=== PATIENT | female | born 1945 | race Caucasian/White ===

== ENCOUNTER 2024-03-22 12:47 | Inpatient (IN) ==
[2024-03-22] MEDS ORDERED: VANCOMYCIN CONSULT ACTIVE PRN (13:29)
--- NOTE | 2024-03-22 13:38 | Emergency Department Note ---
Impression & Plan Cellulitis, Wound infection ED Provider Note NAME: ANTONETTE ROBISON AGE: 78 SEX: F : 1945 ARRIVES VIA: Walk-In INFORMANT: [Patient][family] ED PROVIDER(S): [Kwaku Pinzon MD] CHIEF COMPLAINT: Infection HISTORY OF PRESENT ILLNESS: The patient is a 78-year-old female who was in this ED about 3 days ago after suffering an extensive right knee laceration. The wound was quite dirty. The wound was cleansed and stitched together and she was placed on Keflex. Within about 24 hours she began noticing erythema to the distal aspect of the incision that has now tracked down towards the ankle. She has not had fever or chills. She can move the right knee joint without any pain. The patient went to an urgent care center and was referred to the ER for further workup. The patient states that she has not had cough or congestion. She has no urinary symptoms, there is been no nausea or vomiting. PMHx/PSHx/Social Hx: See Below PHYSICAL EXAM: GENERAL: Patient is in no acute distress. HEENT: No acute trauma, normocephalic atraumatic, mucous membranes moist, no nasal congestion. NECK: No stridor, no adenopathy, no meningismus, trachea is midline. LUNGS: Clear to auscultation bilaterally, no wheeze, no rhonchi, breath sounds equal. HEART: Without murmurs gallops or rubs, regular rate and rhythm. ABDOMEN: Soft, nontender, no peritonitis. EXTREMITIES: No cyanosis. The patient has sutures across the anterior aspect of the right knee. No drainage. Movement of the right knee joint does not cause pain or discomfort. There is warmth and erythema tracking from the inferior aspect of the incision down towards the ankle. There is some ascending erythema as well but it is minimal compared to the inferior erythema. There is some edema to the right lower extremity compared to the left. NEUROLOGIC: Oriented x 3, no acute motor or sensory deficits, no focal weakness. SKIN: No jaundice, no diaphoresis. DIFFERENTIAL DIAGNOSIS: Cellulitis, septic joint, bacteremia or sepsis, bursitis, among others EMERGENCY DEPARTMENT PROCEDURES: MEDICAL DECISION MAKING: There is no leukocytosis. A mild anemia was seen. There was a normal platelet count. There was an elevation to the creatinine consistent with some mild renal insufficiency. No electrolyte abnormality in need of emergent correction. Lactic acid level was not elevated making sepsis less likely. No worrisome liver enzyme elevation. Procalcitonin level was not elevated. On exam, the patient had a right leg cellulitis which seemed to extend from the recent right knee wound. The patient is already on Keflex outpatient. Despite the Keflex, she has developed right leg erythema and warmth and appears now to have a cellulitis. Patient requires admission with IV antibiotic therapy. She may require an orthopedic consult and potential orthopedic intervention if not improving on IV antibiotic therapy. I spoke with the patient and her family, I spoke with case management, the on- call hospitalist was consulted. Prior/Outside records/notes reviewed: Previous ED visit notes from her visit 3 days ago. The notes discussed her presentation and the washout and plan moving forward. Imaging/x-ray results per my interpretation: Chronic Medical/Social conditions affecting care: Advanced age. Care/Management discussed with: Case management, the on-call hospitalist. Level of care consideration(s): After review of the information above and other included data: --I believe the patient requires escalation of care to admission DISPOSITION: Admission Past Med/Surg History Problem List (Updated 03/22/24 @ 15:26 by Kwaku Pinzon MD) Wound infection (Acute) Cellulitis (Acute) Coronary artery disease (Chronic) Acute right eye pain (Acute) Medical History Laceration of knee, right, complicated Surgical History Stented coronary artery Social History Smoking Status: Never smoker Preferred Language: Japanese Feels Safe at Home: Yes Allergies Allergies Allergy/AdvReac Type Severity Reaction Status Date / Time clindamycin Allergy Intermediate RASH Verified 03/22/24 14:53 Home Meds Home Medications Medication Instructions Recorded Confirmed acetaminophen 650 mg 650 mg PO BID PRN SHOULDER PAIN 03/22/24 03/22/24 tablet,extended release amlodipine 5 mg tablet 5 mg PO QPM 03/22/24 03/22/24 aripiprazole 10 mg tablet 10 mg PO QAM 03/22/24 03/22/24 aspirin 81 mg tablet,delayed 81 mg PO Q OTHER DAY 03/22/24 03/22/24 release budesonide 32 mcg/actuation nasal 2 spray intranasal DAILY 03/22/24 03/22/24 spray carbidopa 25 mg-levodopa 100 mg 1 tab PO TID 03/22/24 03/22/24 tablet cetirizine 10 mg tablet (Zyrtec) 5 - 10 mg PO QPM 03/22/24 03/22/24 cholecalciferol (vitamin D3) 125 125 mcg PO QAM 03/22/24 03/22/24 mcg (5,000 unit) tablet (Vitamin D3) ciclopirox 0.77 % topical 1 applic topical DIRECTED PRN 03/22/24 03/22/24 suspension NEEDED cyanocobalamin (vitamin B-12) 500 500 mcg PO QAM 03/22/24 03/22/24 mcg tablet (Vitamin B-12) dextromethorphan IR 45 1 tab PO BID 03/22/24 03/22/24 mg-bupropion ER 105 mg biphasic tablet (Auvelity) estradiol 0.01% (0.1 mg/gram) 1 appful vaginal 2XWK 03/22/24 03/22/24 vaginal cream (Estrace) eszopiclone 3 mg tablet 3 mg PO QPM 03/22/24 03/22/24 fluvoxamine 25 mg tablet 25 mg PO QPM 03/22/24 03/22/24 furosemide 20 mg tablet 40 mg PO QAM 03/22/24 03/22/24 gabapentin 600 mg tablet 600 mg PO TID 03/22/24 03/22/24 hydrocodone 10 mg-acetaminophen 1 tab PO BID PRN Pain 03/22/24 03/22/24 325 mg tablet hydrocortisone 2.5 % topical cream 1 applic ME BID PRN Hemorrhoids 03/22/24 03/22/24 with perineal applicator (Proctosol HC) hydrocortisone acetate 25 mg 25 mg ME DAILY PRN Hemorrhoids 03/22/24 03/22/24 rectal suppository (Anucort-HC) lorazepam 1 mg tablet 0.5 mg PO QPM 03/22/24 03/22/24 meclizine 25 mg tablet 25 mg PO TID PRN Dizziness 03/22/24 03/22/24 methocarbamol 500 mg tablet 500 mg PO BID 03/22/24 03/22/24 metoprolol succinate 25 mg 25 mg PO BID 03/22/24 03/22/24 tablet,extended release 24 hr modafinil 200 mg tablet 400 mg PO QAM 03/22/24 03/22/24 naloxegol 25 mg tablet (Movantik) 25 mg PO DIRECTED PRN NEEDED 03/22/24 03/22/24 nitroglycerin 0.4 mg sublingual 0.4 mg sublingual DIRECTED PRN 03/22/24 03/22/24 tablet Chest Pain pantoprazole 40 mg tablet,delayed 40 mg PO QAM 03/22/24 03/22/24 release psyllium husk 0.52 gram capsule 0.52 g PO 2XWK PRN Constipation 03/22/24 03/22/24 rosuvastatin 20 mg tablet 20 mg PO QPM 03/22/24 03/22/24 sertraline 25 mg tablet 25 mg PO QAM 03/22/24 03/22/24 Previous Rx's Medication Instructions Recorded cephalexin 500 mg capsule 500 mg PO Q6H 5 days #20 caps 03/19/24 Results & Data (ED) Vital Signs Vital Signs - 24 hr 03/22/24 13:01 03/22/24 14:38 Temperature 36.3 C L Temperature Source Temporal Artery Scan Pulse Rate 58 L Pulse Rate [Apical] 55 L Respiratory Rate 20 18 Respiratory Depth Normal Blood Pressure 118/64 Blood Pressure [Right Arm] 114/80 Blood Pressure Mean 82 Blood Pressure Mean [Right Arm] 91 Blood Pressure Position [Right Arm] Sitting Pulse Oximetry 94 94 Oxygen Delivery Method Room Air Room Air Sepsis Recent Fever Within 48 Hours No Sepsis New/Unexplained Change in Mental Status N/A Sepsis Action Taken by Nursing No Action Required Home Medications Current Medication List: was personally reviewed by me Laboratory Data Attestation: I reviewed the patient's lab results. 03/22/24 14:05 03/22/24 14:05 Lab Results 03/22/24 Range/Units 14:05 WBC 9.56 (4.8-10.8) K/ul RBC 3.01 L (4.20-5.40) M/uL Hgb 10.2 L (12.0-16.0) g/dl Hct 31.1 L (37.0-47.0) % MCV 103.3 H (80.0-100.0) fL MCH 33.9 (25.0-34.0) pg MCHC 32.8 (32.0-36.0) g/dL RDW Std Deviation 52.1 H (36.4-46.3) fL RDW Coeff of Charlette 13.8 (11.5-14.5) % Plt Count 245 (130-400) K/uL MPV 8.8 L (9.4-12.4) fL Immature Gran % (Auto) 0.2 % Neut % (Auto) 67.8 % Lymph % (Auto) 18.8 % [place] % (Auto) 9.8 % Eos % (Auto) 2.8 % Baso % (Auto) 0.6 % Neut # (Auto) 6.47 (1.40-6.50) K/uL Lymph # (Auto) 1.80 (1.20-3.40) K/uL [place] # (Auto) 0.94 H (0.11-0.59) K/uL Eos # (Auto) 0.27 (0.00-0.50) K/uL Baso # (Auto) 0.06 (0.00-0.20) K/uL Immature Gran # (Auto) 0.02 (0.01-0.20) K/uL Sodium 135 L (136-145) mmol/L Potassium 4.0 (3.5-5.1) mmol/L Chloride 102 (98-107) mmol/L Carbon Dioxide 27 (21-32) mmol/L Anion Gap 6 (3-11) BUN 23 (6-23) mg/dl Creatinine 1.57 H (0.6-1.2) mg/dl Est Cr Clr Drug Dosing 25.9 ml/min Est GFR ( Amer) 36.0 ml/min Est GFR (Non-Af Amer) 31.0 ml/min BUN/Creatinine Ratio 14.6 (10-20) Glucose 86 (70-99(Fasting)) mg/dl Lactate 1.0 (0.4-2.0) mmol/L Calcium 9.2 (8.6-10.3) mg/dl Total Bilirubin 0.3 (0.2-1.0) mg/dl AST 16 (13-39) U/L ALT 4 L (7-52) U/L Alkaline Phosphatase 76 (34-104) U/L Total Protein 6.6 (6.0-8.3) gm/dl Albumin 3.7 (3.4-5.0) gm/dl Globulin 2.9 (2.5-4.0) gm/dl Albumin/Globulin Ratio 1.3 (0.9-2) Procalcitonin 0.07 (0-0.5) ng/ml Administered Medications Vancomycin HCl 1,750 mg/ (Sodium Chloride) 535 mls @ 200 mls/hr IV NOW ONE Stop: 03/22/24 16:09 Last Admin: 03/22/24 15:01 Dose: 200 mls/hr Documented By: JW Discontinued Medications Cefepime HCl (Maxipime) 2,000 mg in 20 mls @ 5 mls/min IV NOW STA; Protocol Stop: 03/22/24 13:32 Last Admin: 03/22/24 14:28 Dose: 5 mls/min Documented By: AMS Discharge Plan Visit Data Chief Complaint: Infection ED Provider: Kwaku Pinzon Discharge Problem: Cellulitis, Wound infection Patient Disposition: Admitted As Inpatient Condition: Fair Forms Stand Alone Forms: My [facility] Prescriptions Prescriptions: No Action cephalexin 500 mg capsule 500 mg PO Q6H 5 Days Qty: 20 0RF Rx Instructions: STARTED 03/19/24 budesonide [Rhinocort Allergy] 32 mcg/actuation [place],Non-Aerosol 2 spray INTRANASAL DAILY Rx Instructions: administer into each nostril methocarbamol 500 mg Tablet 500 mg PO BID gabapentin 600 mg tablet 600 mg PO TID cetirizine [Zyrtec] 10 mg Tablet 5 - 10 mg PO QPM amlodipine 5 mg tablet 5 mg PO QPM hydrocodone-acetaminophen 10-325 mg tablet 1 tab PO BID PRN (Reason: Pain) Rx Instructions: TAKES BID EVERY DAY aspirin 81 mg Tablet,Delayed Release (Dr/Ec) 81 mg PO Q OTHER DAY acetaminophen [Tylenol Arthritis] 650 mg Tablet Extended Release 650 mg PO BID PRN (Reason: SHOULDER PAIN) hydrocortisone acetate [Anucort-HC] 25 mg Suppository 25 mg ME DAILY PRN (Reason: Hemorrhoids) hydrocortisone [Proctosol HC] 2.5 % Cream With Perineal Applicator 1 applic ME BID PRN (Reason: Hemorrhoids) modafinil 200 mg tablet 400 mg PO QAM cyanocobalamin (vitamin B-12) [Vitamin B-12] 500 mcg Tablet 500 mcg PO QAM fluvoxamine 25 mg tablet 25 mg PO QPM meclizine 25 mg Tablet 25 mg PO TID PRN (Reason: Dizziness) pantoprazole 40 mg tablet,delayed release (DR/EC) 40 mg PO QAM nitroglycerin [NitroQuick] 0.4 mg Tablet, Sublingual 0.4 mg sublingual DIRECTED PRN (Reason: Chest Pain) sertraline 25 mg tablet 25 mg PO QAM furosemide 20 mg tablet 40 mg PO QAM metoprolol succinate 25 mg tablet extended release 24 hr 25 mg PO BID lorazepam 1 mg tablet 0.5 mg PO QPM estradiol [Estrace] 0.01 % (0.1 mg/gram) Cream 1 appful VAGINAL 2XWK carbidopa-levodopa 25-100 mg tablet 1 tab PO TID ciclopirox 0.77 % Suspension 1 applic TOPICAL DIRECTED PRN (Reason: NEEDED) aripiprazole 10 mg tablet 10 mg PO QAM psyllium husk 0.52 gram Capsule 0.52 g PO 2XWK PRN (Reason: Constipation) rosuvastatin 20 mg tablet 20 mg PO QPM eszopiclone 3 mg tablet 3 mg PO QPM cholecalciferol (vitamin D3) [Vitamin D3] 125 mcg (5,000 unit) Tablet 125 mcg PO QAM Movantik 25 mg tablet 25 mg PO DIRECTED PRN (Reason: NEEDED) Rx Instructions: PER PT'S MED LIST "COUPLE NIGHTS PER MONTH" Auvelity 45-105 mg Tablet,Ir,Delayed Rel,Biphasic 1 tab PO BID Referrals Referrals: PCP,NO [Physician] - Discharge Problem: Cellulitis Qualifiers: Site of cellulitis: extremity Site of cellulitis of extremity: lower extremity Laterality: right Qualified Code(s): L03.115 - Cellulitis of right lower limb
[2024-03-22] MEDS: CEFEPIME 2,000 MG/20 ML VIAL IV STA (14:28)
[2024-03-22 14:29] LABS: Basophils # (auto) 0.06 K/uL (0.00-0.20); Basophils % (auto) 0.6 %; Eosinophils # (auto) 0.27 K/uL (0.00-0.50); Eosinophils % (auto) 2.8 %; Hematocrit (blood only) 31.1 % (37.0-47.0); Hemoglobin 10.2 g/dl (12.0-16.0); Immature Granulocytes # (auto) 0.02 K/uL (0.01-0.20); Immature Granulocytes % (auto) 0.2 %; Lymphocytes % (auto) 18.8 %; Mean Corpuscular Hemoglobin 33.9 pg (25.0-34.0); Mean Corpuscular Hgb Conc 32.8 g/dL (32.0-36.0); Mean Corpuscular Volume 103.3 fL (80.0-100.0); Mean Platelet Volume 8.8 fL (9.4-12.4); Monocytes # (auto) 0.94 K/uL (0.11-0.59); Monocytes % (auto) 9.8 %; Neutrophils # (auto) 6.47 K/uL (1.40-6.50); Neutrophils % (auto) 67.8 %; Platelet Count 245 K/uL (130-400); RDW Coefficient of Variation 13.8 % (11.5-14.5); RDW Standard Deviation 52.1 fL (36.4-46.3); Red Blood Count 3.01 M/uL (4.20-5.40); White Blood Count 9.56 K/ul (4.8-10.8)
[2024-03-22 14:39] LABS: Albumin Globulin Ratio 1.3 (0.9-2); Albumin Level 3.7 gm/dl (3.4-5.0); BUN Creatinine Ratio 14.6 (10-20); Bilirubin,Total 0.3 mg/dl (0.2-1.0); Calcium 9.2 mg/dl (8.6-10.3); Creatinine Clr Calc Pharmacy 25.9 ml/min; Globulin 2.9 gm/dl (2.5-4.0); Total Protein 6.6 gm/dl (6.0-8.3)
[2024-03-22] MEDS: VANCOMYCIN HCL 1,750 MG in SODIUM CHLORIDE 0.9% 500 ML IV ONE (15:01)
--- NOTE | 2024-03-22 15:44 | History & Physical Report ---
Date of Service March 22, 2024 Assessment & Plan (1) Wound infection: Plan: This is a 78 y/o [place] from [place] town with a history of CAD s/p stent x 2, newly diagnosed Parkinson's Disease, pudendal neuralgia, insomnia, CKD (unknown stage/baseline), chronic pain, and depression who presents to the ED with worsening redness and swelling of her right knee and leg since fall with laceration of right knee, now s/p repair, three days ago. Pt has been on oral cephalexin, which she reports she was taking as prescribed, but symptoms are continuing to worsen. Denies systemic symptoms including no fevers, chills, sweats. WBCs in the ED are normal. - Admit to med surg - Continue broad spectrum antibiotics with cefepime/vancomycin as started in the ED - MRSA swab - Duplex RLE to r/o DVT - Consult orthopedic surgery for evaluation (2) Laceration of knee, right, complicated: Plan: See plan for #1 (3) Cellulitis: Plan: See plan for #1 (4) Parkinson disease: Plan: Newly diagnosed about a month ago Continue carbidopa/levodopa Fall precautions Consider eventual PT/OT evaluation depending on clinical course (5) Coronary artery disease: Plan: Chronic, stable - no evidence of angina Continue outpatient regimen (6) Essential hypertension: Plan: chronic, stable Continue outpatient regimen (7) Environmental allergies: Plan: Chronic, stable Continue cetirizine, nasal spray (8) Depression: Plan: Chronic, stable Continue outpatient medications Plan Pt seen and reviewed with attending physician, Dr. Blankenship. Plan of care discussed and as outlined above. Code status: full code DVT Prophylaxis: Lovenox Dispo: med surg Vance Damon PA-C History of Present Illness Chief Complaint: right knee cellulitis Primary Care Provider: JACINDA KENYON This is a 78 y/o female from out of town with a history of CAD s/p stent x 2, newly diagnosed Parkinson's Disease, pudendal neuralgia, insomnia, CKD (unknown stage/baseline), chronic pain, and depression who presents to the ED with worsening redness and swelling of her right knee and leg. Pt was walking at the park three days ago when she lost her balance and fell with resultant right knee laceration. ED notes reviewed and laceration was noted to be 15 cm long and contaminated. Since it was thought to be high risk for infection, it was thoroughly washed out before repair and pt was started on oral cephalexin. However, within 24 hrs, pt noted that the area started with get red. The redness has been worsening with associated swelling on the LE below the knee. Area is tender to touch but otherwise she denies significant pain. She denies fevers, chills, or sweats. She has not noted any drainage from the area. Denies malaise, nausea, vomiting, loss of appetite. She has been using a cane to help her ambulate since this injury. No history of diabetes. Allergies Allergy/AdvReac Type Severity Reaction Status Date / Time clindamycin Allergy Intermediate RASH Verified 03/22/24 14:53 Home Medications Medication Instructions Recorded Confirmed Type cephalexin 500 mg capsule 500 mg PO Q6H 5 days #20 caps 03/19/24 03/22/24 Rx acetaminophen 650 mg 650 mg PO BID 03/22/24 03/22/24 History tablet,extended release amlodipine 5 mg tablet 5 mg PO QPM 03/22/24 03/22/24 History aripiprazole 10 mg tablet 10 mg PO QAM 03/22/24 03/22/24 History aspirin 81 mg tablet,delayed 81 mg PO Q OTHER DAY 03/22/24 03/22/24 History release budesonide 32 mcg/actuation nasal 2 spray intranasal DAILY 03/22/24 03/22/24 History spray carbidopa 25 mg-levodopa 100 mg 1 tab PO AC 03/22/24 03/22/24 History tablet cetirizine 10 mg tablet (Zyrtec) 10 mg PO HS 03/22/24 03/22/24 History cholecalciferol (vitamin D3) 125 125 mcg PO QAM 03/22/24 03/22/24 History mcg (5,000 unit) tablet (Vitamin D3) ciclopirox 0.77 % topical 1 applic topical DIRECTED PRN 03/22/24 03/22/24 History suspension NEEDED cyanocobalamin (vitamin B-12) 500 500 mcg PO QAM 03/22/24 03/22/24 History mcg tablet (Vitamin B-12) dextromethorphan IR 45 1 tab PO BID 03/22/24 03/22/24 History mg-bupropion ER 105 mg biphasic tablet (Auvelity) estradiol 0.01% (0.1 mg/gram) 1 appful vaginal 2XWK 03/22/24 03/22/24 History vaginal cream (Estrace) eszopiclone 3 mg tablet 3 mg PO QPM 03/22/24 03/22/24 History fluvoxamine 25 mg tablet 25 mg PO QPM 03/22/24 03/22/24 History furosemide 20 mg tablet 40 mg PO QAM 03/22/24 03/22/24 History gabapentin 600 mg tablet 1,800 mg PO HS 03/22/24 03/22/24 History hydrocodone 10 mg-acetaminophen See Rx Instructions .Route 03/22/24 03/22/24 History 325 mg tablet .COMPLEX PRN Pain hydrocortisone 2.5 % topical cream 1 applic [place] BID PRN Hemorrhoids 03/22/24 03/22/24 History with perineal applicator (Proctosol HC) hydrocortisone acetate 25 mg 25 mg [place] DAILY PRN Hemorrhoids 03/22/24 03/22/24 History rectal suppository (Anucort-HC) lorazepam 1 mg tablet 0.5 mg PO QPM 03/22/24 03/22/24 History meclizine 25 mg tablet 25 mg PO TID PRN Dizziness 03/22/24 03/22/24 History methocarbamol 500 mg tablet 500 mg PO BID 03/22/24 03/22/24 History metoprolol succinate 25 mg 25 mg PO BID 03/22/24 03/22/24 History tablet,extended release 24 hr modafinil 200 mg tablet 400 mg PO QAM 03/22/24 03/22/24 History naloxegol 25 mg tablet (Movantik) 25 mg PO DIRECTED PRN NEEDED 03/22/24 03/22/24 History nitroglycerin 0.4 mg sublingual 0.4 mg sublingual DIRECTED PRN 03/22/24 03/22/24 History tablet Chest Pain pantoprazole 40 mg tablet,delayed 40 mg PO QAM 03/22/24 03/22/24 History release psyllium husk 0.52 gram capsule 0.52 g PO 2XWK PRN Constipation 03/22/24 03/22/24 History rosuvastatin 20 mg tablet 20 mg PO QPM 03/22/24 03/22/24 History sertraline 25 mg tablet 25 mg PO QAM 03/22/24 03/22/24 History Past Med/Surg History Problem List (Updated 03/22/24 @ 16:22 by Aisha Damon PA-C) Laceration of knee, right, complicated Wound infection (Acute) Cellulitis (Acute) Medical History Dyslipidemia Essential hypertension Environmental allergies Depression Malignant melanoma of skin of chest s/p resection - chronic pain since then PAF (paroxysmal atrial fibrillation) Parkinson disease Coronary artery disease Surgical History History of hemorrhoidectomy History of hysterectomy 2016 Stented coronary artery stent x 2 in 1999 Family History Mother Myocardial infarction Stroke 94 Father Diabetes Social History Smoking Status: Never smoker Hx Alcohol Use: No Hx Substance Use: No Preferred Language: Egyptian Feels Safe at Home: Yes Review of Systems Review of Systems: All systems reviewed & are unremarkable except as noted in HPI & below Constitutional: no fever, no chills and no sweats Eyes: no diplopia Ear, Nose, Mouth, Throat: no nasal congestion, no nasal discharge and no sore throat Respiratory: no cough and no dyspnea Cardiovascular: no chest pain, no palpitations and no syncope Gastrointestinal: no abdominal pain, no nausea and no vomiting Genitourinary: no dysuria and no hematuria Musculoskeletal: as per Subjective / HPI and + back pain (chronic pain) Integumentary: as per Subjective / HPI Neurologic: + falls and + tremor(s); no seizure-like activity Physical Exam Physical Exam: Please see physician addendum for details of the physical exam. Results & Data Results & Data Vital Signs (Past 12 Hours) Vital Signs Temp Pulse Pulse Resp BP BP Pulse Ox 03/22/24 14:38 55 L 18 114/80 94 03/22/24 13:01 36.3 C L 58 L 20 118/64 94 O2 Del Method 03/22/24 14:38 Room Air 03/22/24 13:01 Room Air Laboratory Results Laboratory Results - last 24 hr 03/22/24 14:05 WBC 9.56 RBC 3.01 L Hgb 10.2 L Hct 31.1 L MCV 103.3 H MCH 33.9 MCHC 32.8 RDW Std Deviation 52.1 H RDW Coeff of [place] 13.8 Plt Count 245 MPV 8.8 L Immature Gran % (Auto) 0.2 Neut % (Auto) 67.8 Lymph % (Auto) 18.8 [place] % (Auto) 9.8 Eos % (Auto) 2.8 Baso % (Auto) 0.6 Neut # (Auto) 6.47 Lymph # (Auto) 1.80 [place] # (Auto) 0.94 H Eos # (Auto) 0.27 Baso # (Auto) 0.06 Immature Gran # (Auto) 0.02 Sodium 135 L Potassium 4.0 Chloride 102 Carbon Dioxide 27 Anion Gap 6 BUN 23 Creatinine 1.57 H Est Cr Clr Drug Dosing 25.9 Est GFR ( Amer) 36.0 Est GFR (Non-Af Amer) 31.0 BUN/Creatinine Ratio 14.6 Glucose 86 Lactate 1.0 Calcium 9.2 Total Bilirubin 0.3 AST 16 ALT 4 L Alkaline Phosphatase 76 Total Protein 6.6 Albumin 3.7 Globulin 2.9 Albumin/Globulin Ratio 1.3 Procalcitonin 0.07 Medications Administered Vancomycin HCl 1,750 mg/ (Sodium Chloride) 535 mls @ 200 mls/hr IV NOW ONE Stop: 03/22/24 16:09 Last Admin: 03/22/24 15:01 Dose: 200 mls/hr Documented By: JW Discontinued Medications Cefepime HCl (Maxipime) 2,000 mg in 20 mls @ 5 mls/min IV NOW STA; Protocol Stop: 03/22/24 13:32 Last Admin: 03/22/24 14:28 Dose: 5 mls/min Documented By: AMS Supervising Physician Co-Signing Physician Notes I have seen and discussed the case with the collaborating advanced practitioner. I agree with the above H&P. I have reviewed and confirmed the patients medical history, the findings on physical examination, and the patients diagnosis and treatment plan with Marisol JOHNSON and agree with the information documented. Ms. Amin is a 78 year old woman with history of CAD s/p 2 EMILY x2, CKD, pudendal neuralgia, newly diagnosed Parkinson's, prior arrhythmia, mood disorder, chronic opioid use 2/2 pain who is admitted for management and evaluation of right knee laceration that appears to be worsening. Patient was walking on an uneven brick path and tripped resulting in large right knee laceration. Patient presented to ED on 03/19, underwent suturing and given keflex. Days after leaving ED, patient noted worsening redness and swelling. Denies fevers. chills. GENERAL APPEARANCE: AxOx4, generally well-appearing F, no acute distress. HEENT: NC, AT. MMM. EOMI, clear conjunctiva, oropharynx clear. NECK: Supple without lymphadenopathy. No stiffness or restricted ROM. HEART: Normal rate and regular rhythm, normal S1/S1, no m/r/g LUNGS: CTAB, moving air well. No crackles or wheezes are heard. ABDOMEN: Soft, nontender, nondistended with good bowel sounds heard. BACK: No CVAT, no obvious deformity. EXTREMITIES: LLE without edema; RLE with large horizontal laceration sutured, no signs of drainage or fluid/purulent collections, large degree of edema on anterior velez with ecchymosis and erythema extending to ankle NEUROLOGICAL: Grossly nonfocal. Alert and oriented, moving all 4 extremities. CN not formally tested but appear grossly intact. Observed to ambulate with normal gait. : #Right knee laceration, c/f superficial cellulitis swelling and ecchymosis consistent with large degree of edema, but erythema and tenderness possible for superimposed infection XRAY no fracture or effusion CT leg to eval for any fluid/hematoma collection Ortho consult IV abx--mrsa nare, d/c vanc if negative #CAD s/p EMILY #HTN continue metoprolol BID continue asa and statin Continue furosemide #Chronic pain #Pudendal neuralgia -continue home regimen #PD continue sinamet #CKD Unknown baseline, told that she has "CKD" but "not that bad" resume home regimen rest of plan as above I spent a total of 35 minutes coordinating, documenting, and providing care for this patient excluding time spent in the performance of separately billed services. All of the aforementioned completed outside of collaborating with the assigned advanced practitioner for a full treatment plan. I have reviewed the advanced practitioner's documentation, and I agree with, and take responsibility for the plan of care (2) Laceration of knee, right, complicated Encounter type: initial encounter Qualified Code(s): S81.011A - Laceration without foreign body, right knee, initial encounter (3) Cellulitis Laterality: right Site of cellulitis: extremity Site of cellulitis of extremity: lower extremity Qualified Code(s): L03.115 - Cellulitis of right lower limb (4) Parkinson disease Dyskinesia presence: unspecified whether dyskinesia Fluctuating manifestations: unspecified whether manifestations fluctuate Qualified Code(s): G20.A1 - Parkinson's disease without dyskinesia, without mention of fluctuations (5) Coronary artery disease Associated angina: without angina Coronary Disease-Associated Artery/Lesion type: [place] artery [place] vs. transplanted heart: [place] heart Qualified Code(s): I25.10 - Atherosclerotic heart disease of [place] coronary artery without angina pectoris (8) Depression Depression Type: unspecified Qualified Code(s): F32.A - Depression, unspecified
--- NOTE | 2024-03-22 18:30 | Ultrasound Report ---
US venous doppler LE RT CLINICAL HISTORY: swelling, erythema, r/o dvt TECHNIQUE: Right lower extremity real-time compression venous ultrasound with Color Doppler imaging. Utilizing real-time ultrasonic imaging multiple real time high-resolution ultrasonic images with comp ression and noncompression maneuvers of the deep venous system in addition to color doppler imaging w ere performed from the common femoral vein through the proximal calf veins. COMPARISON: None available at the time of this dictation. FINDINGS/IMPRESSION: Currently there is normal compressibility of the deep venous system from the common femoral vein thro ugh the proximal calf veins. No superficial venous thrombosis is identified. ACT 112: Negative or not required by law. Electronically signed by: Bull Marques M.D. 03/22/2024 6:29 PM
--- NOTE | 2024-03-22 18:36 | CT Scan Report ---
CT tib/fib RT wo con CLINICAL HISTORY: c/f fluid collection TECHNIQUE: Multidetector row helical CT of the right tibia and fibula was performed without intraveno us contrast. Coronal and sagittal reformations were obtained. Automated dose lowering techniques and/ or adjustment according to patient size were utilized for this examination. CT DOSE: 304.83 mGy.cm Comparison: Comparison is made to right knee radiographs 03/19/2024 FINDINGS: The osseous structures are without fracture or dislocation. The joint spaces are maintained. No joint effusion is seen. Soft tissue edema is seen without drainable fluid collection. IMPRESSION: Soft tissue edema without drainable fluid collection to suggest abscess. There is no evidence of bony erosion to suggest osteomyelitis. ACT 112: Negative or not required by law. Electronically signed by: Bull Marques M.D. 03/22/2024 6:34 PM
[2024-03-22] MEDS ORDERED: HYDROcodone/ACETAMINOPHEN 10/325 TAB PO PRN (18:39)
[2024-03-22] MEDS ORDERED: MECLIZINE HCL 25 MG TAB PO PRN (18:39)
[2024-03-22] MEDS: CARBIDOPA/LEVODOPA 25/100MG TAB PO SCH (19:44)
[2024-03-22] MEDS: METHOCARBAMOL 500 MG TABLET PO SCH (21:16)
[2024-03-22] MEDS: ACETAMINOPHEN 325 MG TAB PO SCH (21:21)
[2024-03-22] MEDS: fluvoxaMINE MALEATE 50 MG TAB PO SCH (21:21)
[2024-03-22] MEDS: amLODIPine BESYLATE 5 MG TAB PO SCH (21:21)
[2024-03-22] MEDS: GABAPENTIN 600 MG TAB PO SCH (21:21)
[2024-03-22] MEDS: ROSUVASTATIN CALCIUM 20 MG TAB PO SCH (21:21)
[2024-03-22] MEDS: CETIRIZINE HCL 10 MG TABLET PO SCH (21:21)
[2024-03-22] MEDS: HYDROcodone/ACETAMINOPHEN 10/325 TAB PO SCH (21:28)
[2024-03-22] MEDS: ESZOPICLONE 1 MG TAB PO SCH (21:28)
[2024-03-22] MEDS: LORazepam 0.5 MG TAB PO SCH (21:28)
[2024-03-22] MEDS: METOPROLOL SUCC 25MG EXT REL TAB PO SCH (21:32)
[2024-03-23] MEDS: CEFEPIME 1,000 MG in SYRINGE 0 ML IV SCH (00:58)
[2024-03-23 07:10] LABS: Basophils # (auto) 0.05 K/uL (0.00-0.20); Basophils % (auto) 0.6 %; Eosinophils # (auto) 0.28 K/uL (0.00-0.50); Eosinophils % (auto) 3.3 %; Hematocrit (blood only) 29.9 % (37.0-47.0); Hemoglobin 9.7 g/dl (12.0-16.0); Immature Granulocytes # (auto) 0.03 K/uL (0.01-0.20); Immature Granulocytes % (auto) 0.4 %; Lymphocytes # (auto) 2.32 K/uL (1.20-3.40); Lymphocytes % (auto) 27.6 %; Mean Corpuscular Hemoglobin 33.3 pg (25.0-34.0); Mean Corpuscular Hgb Conc 32.4 g/dL (32.0-36.0); Mean Corpuscular Volume 102.7 fL (80.0-100.0); Monocytes # (auto) 0.84 K/uL (0.11-0.59); Neutrophils # (auto) 4.89 K/uL (1.40-6.50); Neutrophils % (auto) 58.1 %; Platelet Count 239 K/uL (130-400); RDW Coefficient of Variation 13.8 % (11.5-14.5); Red Blood Count 2.91 M/uL (4.20-5.40); White Blood Count 8.41 K/ul (4.8-10.8)
[2024-03-23 07:32] LABS: BUN Creatinine Ratio 14.3 (10-20); Calcium 8.6 mg/dl (8.6-10.3); Creatinine Clr Calc Pharmacy 27.6 ml/min; Est GFR (African American) 38.9 ml/min; Est GFR (Non-African American) 33.6 ml/min; Potassium 3.6 mmol/L (3.5-5.1)
[2024-03-23] MEDS: SERTRALINE HCL 50 MG TABLET PO SCH (07:52)
[2024-03-23] MEDS: HYDROcodone/ACETAMINOPHEN 10/325 TAB PO SCH (07:52)
[2024-03-23] MEDS: FUROSEMIDE 40 MG TAB PO SCH (07:53)
[2024-03-23] MEDS: PANTOprazole 40 MG TAB PO SCH (07:53)
[2024-03-23] MEDS: ARIPiprazole 10 MG TAB PO SCH (07:54)
[2024-03-23] MEDS: CYANOCOBALAMIN (B-12) 500 MCG TABLET PO SCH (07:54)
[2024-03-23] MEDS: CHOLECALCIFEROL 125 MCG (5,000 UNITS) TAB PO SCH (07:54)
[2024-03-23] MEDS: ENOXAPARIN INJ 30 MG/0.3 ML SYR SQ SCH (07:55)
[2024-03-23] MEDS: FLUTICASONE PROPIONATE NA SPR 16 GM BTL NAE SCH (07:55)
[2024-03-23] MEDS: VANCOMYCIN HCL 1,000 MG in SODIUM CHLORIDE 0.9% 250 ML IV SCH (07:55)
--- NOTE | 2024-03-23 08:41 | Orthopedic Consultation ---
Date of Service March 23, 2024 Assessment & Plan (1) Laceration of knee, right, complicated: (2) Cellulitis: Plan Overall, this looks to be potential cellulitis after the repair traumatic laceration. There are no focal fluid collections requiring surgical debridement, at least today. Recommend continuing observation on IV antibiotics. If continues to improve, can be transition to oral antibiotic tomorrow and watch closely as an outpatient. If there is any reversal and her positive trend, then a formal irrigation debridement may be necessary. There is distinct advantage to avoid that if possible. Continue current treatment. Gentle range of motion as tolerated. Weightbearing as tolerated Aspirin may be sufficient in isolation for DVT chemoprophylaxis. Include mechanical. Lovenox may result in persistent serous drainage. Will continue to follow her course -please contact if worsening History of Present Illness Reason for Consultation: Right knee laceration Requesting Physician: . Attending Physician: Guerita Blankenship MD 78-year-old female fell in [facility] resulting in a traumatic laceration to the anterior aspect of her right knee 3 days ago. She presented back to the ER with increasing redness and pain about the repaired laceration. She was admitt ed overnight on IV antibiotics. She reports that the appearance is not worse than her admission. Overall she does not feel sick. There has been no significant drainage. Allergies Allergy/AdvReac Type Severity Reaction Status Date / Time clindamycin Allergy Intermediate RASH Verified 03/22/24 14:53 Home Medications Medication Instructions Recorded Confirmed Type cephalexin 500 mg capsule 500 mg PO Q6H 5 days #20 caps 03/19/24 03/22/24 Rx acetaminophen 650 mg 650 mg PO BID 03/22/24 03/22/24 History tablet,extended release amlodipine 5 mg tablet 5 mg PO QPM 03/22/24 03/22/24 History aripiprazole 10 mg tablet 10 mg PO QAM 03/22/24 03/22/24 History aspirin 81 mg tablet,delayed 81 mg PO Q OTHER DAY 03/22/24 03/22/24 History release budesonide 32 mcg/actuation nasal 2 spray intranasal DAILY 03/22/24 03/22/24 History spray carbidopa 25 mg-levodopa 100 mg 1 tab PO AC 03/22/24 03/22/24 History tablet cetirizine 10 mg tablet (Zyrtec) 10 mg PO HS 03/22/24 03/22/24 History cholecalciferol (vitamin D3) 125 125 mcg PO QAM 03/22/24 03/22/24 History mcg (5,000 unit) tablet (Vitamin D3) ciclopirox 0.77 % topical 1 applic topical DIRECTED PRN 03/22/24 03/22/24 History suspension NEEDED cyanocobalamin (vitamin B-12) 500 500 mcg PO QAM 03/22/24 03/22/24 History mcg tablet (Vitamin B-12) dextromethorphan IR 45 1 tab PO BID 03/22/24 03/22/24 History mg-bupropion ER 105 mg biphasic tablet (Auvelity) estradiol 0.01% (0.1 mg/gram) 1 appful vaginal 2XWK 03/22/24 03/22/24 History vaginal cream (Estrace) eszopiclone 3 mg tablet 3 mg PO QPM 03/22/24 03/22/24 History fluvoxamine 25 mg tablet 25 mg PO QPM 03/22/24 03/22/24 History furosemide 20 mg tablet 40 mg PO QAM 03/22/24 03/22/24 History gabapentin 600 mg tablet 1,800 mg PO HS 03/22/24 03/22/24 History hydrocodone 10 mg-acetaminophen See Rx Instructions .Route 03/22/24 03/22/24 History 325 mg tablet .COMPLEX PRN Pain hydrocortisone 2.5 % topical cream 1 applic [place] BID PRN Hemorrhoids 03/22/24 03/22/24 History with perineal applicator (Proctosol HC) hydrocortisone acetate 25 mg 25 mg [place] DAILY PRN Hemorrhoids 03/22/24 03/22/24 History rectal suppository (Anucort-HC) lorazepam 1 mg tablet 0.5 mg PO QPM 03/22/24 03/22/24 History meclizine 25 mg tablet 25 mg PO TID PRN Dizziness 03/22/24 03/22/24 History methocarbamol 500 mg tablet 500 mg PO BID 03/22/24 03/22/24 History metoprolol succinate 25 mg 25 mg PO BID 03/22/24 03/22/24 History tablet,extended release 24 hr modafinil 200 mg tablet 400 mg PO QAM 03/22/24 03/22/24 History naloxegol 25 mg tablet (Movantik) 25 mg PO DIRECTED PRN NEEDED 03/22/24 03/22/24 History nitroglycerin 0.4 mg sublingual 0.4 mg sublingual DIRECTED PRN 03/22/24 03/22/24 History tablet Chest Pain pantoprazole 40 mg tablet,delayed 40 mg PO QAM 03/22/24 03/22/24 History release psyllium husk 0.52 gram capsule 0.52 g PO 2XWK PRN Constipation 03/22/24 03/22/24 History rosuvastatin 20 mg tablet 20 mg PO QPM 03/22/24 03/22/24 History sertraline 25 mg tablet 25 mg PO QAM 03/22/24 03/22/24 History Past Med/Surg History Problem List Laceration of knee, right, complicated Wound infection (Acute) Cellulitis (Acute) Medical History Dyslipidemia Essential hypertension Environmental allergies Depression Malignant melanoma of skin of chest s/p resection - chronic pain since then PAF (paroxysmal atrial fibrillation) Parkinson disease Coronary artery disease Surgical History History of hemorrhoidectomy History of hysterectomy 2016 Stented coronary artery stent x 2 in 1999 Family History Mother Myocardial infarction Stroke 94 Father Diabetes Social History Smoking Status: Never smoker Hx Alcohol Use: No Hx Substance Use: No Preferred Language: Colombian Communication Ability: Effective Manager Internal Required: No Beliefs That Will Affect Care: None Current Living Situation: Family Other Information That Helps Us Care for You: No Feels Safe at Home: Yes Safety Concerns: Feels Safe At This Time Assistive Devices: Cane Review of Systems All systems reviewed & are unremarkable except as noted in HPI & below. Physical Exam Right knee: Laceration crosses the superior aspect of the patella tendon and is repaired tightly with nylon suture and crossing Steri-Strips. There is no active drainage. I removed a Steri-Strip which resulted in some serous drainage. No overt evidence of infection. There is descending erythema down the anterior aspect of the leg that may be posttraumatic or reactive from infection. On palpation there are no areas of significant fluctuance or clear abscess formation. Positive DF/PF. She can perform a straight leg raise. Constitutional WD/WN, vitals as above Respiratory normal respiratory effort; no respiratory distress Cardiovascular Extremities: normal capillary refill; no edema Chest (Breasts) Chest: normal inspection of chest Skin no rashes, warm and dry Psychiatric A+Ox3, euthymic affect Results & Data Results & Data Laboratory Results Laboratory Tests 03/22/24 03/22/24 03/22/24 14:05 14:05 14:05 WBC 9.56 Hct 31.1 L Creatinine 1.57 H 03/23/24 03/23/24 03/23/24 05:57 05:57 05:57 WBC 8.41 Hct 29.9 L Creatinine 1.47 H Diagnostic Findings . PG Care Time/CCT Total # of Minutes Spent Total Time Spent with Patient: Total time spent is greater than 50% in coordination of care (as documented) at patient's floor/unit and/or counseling patient: Coding Level of Care Code 19781 IN/OBS CONSULT LVL 4,60M Diagnoses Laceration of knee, right, complicated S81.011A Encounter type: initial encounter Cellulitis L03.115 Laterality: right Site of cellulitis: extremity Site of cellulitis of extremity: lower extremity (1) Laceration of knee, right, complicated Encounter type: initial encounter Qualified Code(s): S81.011A - Laceration without foreign body, right knee, initial encounter (2) Cellulitis Laterality: right Site of cellulitis: extremity Site of cellulitis of extremity: lower extremity Qualified Code(s): L03.115 - Cellulitis of right lower limb
[2024-03-23] MEDS ORDERED: modafiniL 100 MG TAB PO SCH (09:00)
[2024-03-23] MEDS: modafiniL 100 MG TAB PO SCH (13:21)
--- NOTE | 2024-03-23 13:27 | Hospitalist Progress Note ---
Date of Service March 23, 2024 Assessment & Plan (1) Wound infection: (2) Laceration of knee, right, complicated: (3) Cellulitis: (4) Parkinson disease: (5) Coronary artery disease: (6) Essential hypertension: (7) Environmental allergies: (8) Depression: Plan Ms. Amin is a 78 y/o woman from out of town with a history of CAD s/p stent x 2, newly diagnosed Parkinson's Disease, pudendal neuralgia, insomnia, CKD (unknown stage/baseline), chronic pain, and depression who presents to the ED with worsening redness and swelling of her right knee and leg since fall with laceration of right knee, now s/p repair, three days ago. Pt has been on oral cephalexin, which she reports she was taking as prescribed, but symptoms are continuing to worsen. Denies systemic symptoms including no fevers, chills, sweats. Patient without leukocytosis. No purulence noted on exam. Notable edema and ecchymosis on RLE, improved since admission. Ortho evaluated this am recommending WBAT, continue current management, encourage gentle ROM #Right knee laceration with superimposed cellulitis CT RLE, no fluid collection c/w abscess formation Continue broad spectrum antibiotics with cefepime/vancomycin as started in the ED - MRSA swabL negative - Duplex RLE to r/o DVT: reviewed, no thrombosis Ortho recommendations reviewed: -D/C lovenox, -ASA BID -CTM on IV abx, transition PO possibly tomorrow PT/OT Wound consult #Parkinson disease: Newly diagnosed about a month ago Continue carbidopa/levodopa Fall precautions #Coronary artery disease: Chronic, stable - no evidence of angina Continue outpatient regimen #Essential hypertension: chronic, stable Continue outpatient regimen #Environmental allergies: Chronic, stable Continue cetirizine, nasal spray #Depression: Chronic, stable Continue outpatient medications DVT ASA 81 BID, ambulate as able dispo 1-2 days 60 minutes spent at bedside with daughter and son; discussion regarding medications, safety at home and encouraging assitive device, as well as OP follow was had. Daughter states she will likely do home rehab or follow up in [place], sutures to be removed in 2 weeks. Admission and Anticipated Discharge Date Admission Date: March 22, 2024 Subjective NAEO Patient reports improvement overall, denies fevers chills. Denies uncontrolled pain. Physical Exam Constitutional: WD/WN, vitals as above Respiratory: normal respiratory effort, lungs clear to auscultation Skin: visible improvement in edema of RLE, horizontal laceration with well approximately edges, sutures in place, steri-strips, no drainage noted, large ecchymosis on patella Results & Data Results & Data Vital Signs (Past 12 Hours) Vital Signs Temp Pulse Resp BP Pulse Ox O2 Del Method 03/23/24 07:59 36.4 C L 64 16 127/72 92 Room Air Laboratory Results Short CBC 03/22/24 03/23/24 Range/Units 14:05 05:57 WBC 9.56 8.41 (4.8-10.8) K/ul Hgb 10.2 L 9.7 L (12.0-16.0) g/dl Hct 31.1 L 29.9 L (37.0-47.0) % Plt Count 245 239 (130-400) K/uL BMP 03/22/24 03/23/24 14:05 05:57 Sodium 135 L 138 Potassium 4.0 3.6 Chloride 102 106 Carbon Dioxide 27 26 BUN 23 21 Creatinine 1.57 H 1.47 H Glucose 86 79 Calcium 9.2 8.6 Liver Function 03/22/24 Range/Units 14:05 Total Bilirubin 0.3 (0.2-1.0) mg/dl AST 16 (13-39) U/L ALT 4 L (7-52) U/L Alkaline Phosphatase 76 (34-104) U/L Albumin 3.7 (3.4-5.0) gm/dl Medications Administered Home Medications Medication Instructions Recorded Confirmed Last Taken cephalexin 500 mg capsule 500 mg PO Q6H 5 days #20 caps 03/19/24 03/22/24 03/22/24 08:00 acetaminophen 650 mg 650 mg PO BID 03/22/24 03/22/24 Unknown tablet,extended release amlodipine 5 mg tablet 5 mg PO QPM 03/22/24 03/22/24 03/21/24 aripiprazole 10 mg tablet 10 mg PO QAM 03/22/24 03/22/24 03/22/24 aspirin 81 mg tablet,delayed 81 mg PO Q OTHER DAY 03/22/24 03/22/24 03/22/24 release budesonide 32 mcg/actuation nasal 2 spray intranasal DAILY 03/22/24 03/22/24 03/22/24 spray carbidopa 25 mg-levodopa 100 mg 1 tab PO AC 03/22/24 03/22/24 03/22/24 08:00 tablet cetirizine 10 mg tablet (Zyrtec) 10 mg PO HS 03/22/24 03/22/24 03/21/24 cholecalciferol (vitamin D3) 125 125 mcg PO QAM 03/22/24 03/22/24 03/22/24 mcg (5,000 unit) tablet (Vitamin D3) ciclopirox 0.77 % topical 1 applic topical DIRECTED PRN 03/22/24 03/22/24 Unknown suspension NEEDED cyanocobalamin (vitamin B-12) 500 500 mcg PO QAM 03/22/24 03/22/24 03/22/24 mcg tablet (Vitamin B-12) dextromethorphan IR 45 1 tab PO BID 03/22/24 03/22/24 03/22/24 08:00 mg-bupropion ER 105 mg biphasic tablet (Auvelity) estradiol 0.01% (0.1 mg/gram) 1 appful vaginal 2XWK 03/22/24 03/22/24 Unknown vaginal cream (Estrace) eszopiclone 3 mg tablet 3 mg PO QPM 03/22/24 03/22/24 03/21/24 fluvoxamine 25 mg tablet 25 mg PO QPM 03/22/24 03/22/24 03/21/24 furosemide 20 mg tablet 40 mg PO QAM 03/22/24 03/22/24 03/22/24 gabapentin 600 mg tablet 1,800 mg PO HS 03/22/24 03/22/24 03/22/24 08:00 hydrocodone 10 mg-acetaminophen See Rx Instructions .Route 03/22/24 03/22/24 03/22/24 08:00 325 mg tablet .COMPLEX PRN Pain hydrocortisone 2.5 % topical cream [address] BID PRN Hemorrhoids 03/22/24 03/22/24 Unknown with perineal applicator (Proctosol HC) hydrocortisone acetate [address] DAILY PRN Hemorrhoids 03/22/24 03/22/24 Unknown rectal suppository (Anucort-HC) lorazepam 1 mg tablet 0.5 mg PO QPM 03/22/24 03/22/24 03/21/24 meclizine 25 mg tablet 25 mg PO TID PRN Dizziness 03/22/24 03/22/24 Unknown methocarbamol 500 mg tablet 500 mg PO BID 03/22/24 03/22/24 03/22/24 08:00 metoprolol succinate 25 mg 25 mg PO BID 03/22/24 03/22/24 03/22/24 08:00 tablet,extended release 24 hr modafinil 200 mg tablet 400 mg PO QA 03/22/24 03/22/24 03/22/24 naloxegol 25 mg tablet (Movantik) 25 mg PO DIRECTED PRN NEEDED 03/22/24 03/22/24 Unknown nitroglycerin 0.4 mg sublingual 0.4 mg sublingual DIRECTED PRN 03/22/24 Unknown tablet Chest Pain pantoprazole 40 mg tablet,delayed 40 mg PO [facility] 03/22/24 03/22/24 03/22/24 release psyllium husk 0.52 gram capsule 0.52 g PO 2XWK PRN Constipation 03/22/24 03/22/24 Unknown rosuvastatin 20 mg tablet 20 mg PO QPM 03/22/24 03/22/24 03/21/24 sertraline 25 mg tablet 25 mg PO QA 03/22/24 03/22/24 03/22/24 Active Medications Generic Name Dose Route Start Last Admin Trade Name Freq PRN Reason Stop Dose Admin Acetaminophen 650 mg 03/22/24 22:00 03/23/24 13:22 Acetaminophen 325 Mg Tab PO 04/21/24 21:59 650 mg Q8 GIGI Administration Hydrocodone Bitart/Acetaminophen 0.5 tab 03/23/24 09:00 03/23/24 07:52 Hydrocodone/Acetaminophen 10/325 Tab PO 04/06/24 08:59 0.5 tab BID@0900,1600 GIGI Administration Hydrocodone Bitart/Acetaminophen 1 tab 03/22/24 21:00 03/22/24 21:28 Hydrocodone/Acetaminophen 10/325 Tab PO 04/05/24 20:59 1 tab HS GIGI Administration Amlodipine Besylate 5 mg 03/22/24 21:00 03/22/24 21:21 Amlodipine Besylate 5 Mg Tab PO 04/21/24 20:59 5 mg QPM GIGI Administration Aripiprazole 10 mg 03/23/24 09:00 03/23/24 07:54 Aripiprazole 10 Mg Tab PO 04/22/24 08:59 10 mg QAM GIGI Administration Carbidopa/Levodopa 1 tab 03/22/24 18:39 03/23/24 13:22 Carbidopa/Levodopa 25/100mg Tab PO 04/21/24 18:38 1 tab AC GIGI Administration Cetirizine HCl 10 mg 03/22/24 21:00 03/22/24 21:21 Cetirizine Hcl 10 Mg Tablet PO 04/21/24 20:59 10 mg HS GIGI Administration Cyanocobalamin 500 mcg 03/23/24 09:00 03/23/24 07:54 Cyanocobalamin (B-12) 500 Mcg Tablet PO 04/22/24 08:59 500 mcg QAM GIGI Administration Eszopiclone 3 mg 03/22/24 21:00 03/22/24 21:28 Eszopiclone 1 Mg Tab PO 04/21/24 20:59 3 mg QPM GIGI Administration Fluticasone Propionate 2 sprays 03/23/24 09:00 03/23/24 07:55 Fluticasone Propionate Na Spr 16 Gm Btl ANOOP 04/22/24 08:59 2 sprays DAILY GIGI Administration Fluvoxamine Maleate 25 mg 03/22/24 21:00 03/22/24 21:21 Fluvoxamine Maleate 50 Mg Tab PO 04/21/24 20:59 25 mg QPM GIGI Administration Furosemide 40 mg 03/23/24 09:00 03/23/24 07:53 Furosemide 40 Mg Tab PO 04/22/24 08:59 40 mg QAM GIGI Administration Gabapentin 1,800 mg 03/22/24 21:00 03/22/24 21:21 Gabapentin 600 Mg Tab PO 04/21/24 20:59 1,800 mg HS GIGI Administration Cefepime HCl 1,000 mg/ Syringe 10 mls @ 5 mls/min 03/23/24 01:00 03/23/24 13:23 IV 03/30/24 00:59 5 mls/min Q12H GIGI Administration Protocol Vancomycin HCl 1,000 mg/ 270 mls @ 200 mls/hr 03/23/24 08:00 03/23/24 09:35 Sodium Chloride IV 03/30/24 07:59 Infused Q24H GIGI Infusion Lorazepam 0.5 mg 03/22/24 21:00 03/22/24 21:28 Lorazepam 0.5 Mg Tab PO 04/21/24 20:59 0.5 mg QPM GIGI Administration Metoprolol Succinate 25 mg 03/22/24 21:00 03/23/24 07:53 Metoprolol Succ 25mg Ext Rel Tab PO 04/21/24 20:59 25 mg BID GIGI Administration Miscellaneous 1 each 03/22/24 21:00 03/23/24 07:26 Auvelity 45/105 Mg -Order Awaiting Action N/A 04/21/24 20:59 Not Given QS GIGI Modafinil 400 mg 03/23/24 13:00 03/23/24 13:21 Modafinil 100 Mg Tab PO 04/22/24 12:59 Not Given 1300 GIGI Pantoprazole Sodium 40 mg 03/23/24 09:00 03/23/24 07:53 Pantoprazole 40 Mg Tab PO 04/22/24 08:59 40 mg QAM GIGI Administration Rosuvastatin Calcium 20 mg 03/22/24 21:00 03/22/24 21:21 Rosuvastatin Calcium 20 Mg Tab PO 04/21/24 20:59 20 mg QPM GIGI Administration Sertraline HCl 25 mg 03/23/24 09:00 03/23/24 07:52 Sertraline Hcl 50 Mg Tablet PO 04/22/24 08:59 25 mg QAM GIGI Administration Vitamin D 125 mcg 03/23/24 09:00 03/23/24 07:54 Cholecalciferol 125 Mcg (5,000 Units) Tab PO 04/22/24 08:59 125 mcg QAM GIGI Administration (2) Laceration of knee, right, complicated Encounter type: initial encounter Qualified Code(s): S81.011A - Laceration without foreign body, right knee, initial encounter (3) Cellulitis Laterality: right Site of cellulitis: extremity Site of cellulitis of extremity: lower extremity Qualified Code(s): L03.115 - Cellulitis of right lower limb (4) Parkinson disease Dyskinesia presence: unspecified whether dyskinesia Fluctuating manifestations: unspecified whether manifestations fluctuate Qualified Code(s): G20.A1 - Parkinson's disease without dyskinesia, without mention of fluctuations (5) Coronary artery disease Coronary Disease-Associated Artery/Lesion type: [place] artery [place] vs. transplanted heart: [place] heart Associated angina: without angina Qualified Code(s): I25.10 - Atherosclerotic heart disease of [place] coronary artery without angina pectoris (8) Depression Depression Type: unspecified Qualified Code(s): F32.A - Depression, unspecified
--- NOTE | 2024-03-23 13:52 | Pharmacy Report ---
Pharmacy PK ABX Note - Date of Service March 23, 2024 - Assessment and Plan Assessment 78 year old F started on Vancomycin yesterday for treatment of R knee cellulitis from laceration. Pertinent microbiologic data includes: Blood cultures pending. Day #2 of antimicrobial therapy. Patent is also received Cefepime. Noted history of CKD. Plan Vancomycin * Loading dose: 1750 mg IV x 1 given yesterday in ED. * Maintenance dose: 1000 mg IV every 24 hours * Regimen is predicted to achieve target AUC/ELIZABETH of 400-600 mg/L.hr * Random level ordered for: 03/24/24 with AM labs Pharmacy will continue to follow and will adjust dose/frequency as necessary. Thank you. Pharmacy has transitioned to AUC monitoring for vancomycin. AUC/ELIZABETH is the preferred PK/PD target and is associated with decreased risk of nephrotoxicity compared to traditional trough targets.
[2024-03-23] MEDS: ASPIRIN 81 MG ECTAB PO SCH (22:12)
[2024-03-24] MEDS: VANCOMYCIN LEVEL SCH (07:44)
[2024-03-24 08:16] LABS: Hematocrit (blood only) 31.1 % (37.0-47.0); Hemoglobin 9.8 g/dl (12.0-16.0); Mean Corpuscular Hemoglobin 32.8 pg (25.0-34.0); Mean Corpuscular Hgb Conc 31.5 g/dL (32.0-36.0); Mean Platelet Volume 8.6 fL (9.4-12.4); Platelet Count 234 K/uL (130-400); RDW Coefficient of Variation 14.1 % (11.5-14.5); RDW Standard Deviation 54.2 fL (36.4-46.3); Red Blood Count 2.99 M/uL (4.20-5.40); White Blood Count 7.48 K/ul (4.8-10.8)
[2024-03-24 08:31] LABS: BUN Creatinine Ratio 12.1 (10-20); Calcium 8.9 mg/dl (8.6-10.3); Creatinine Clr Calc Pharmacy 27.3 ml/min; Est GFR (African American) 38.3 ml/min; Est GFR (Non-African American) 33.1 ml/min; Potassium 3.7 mmol/L (3.5-5.1)
[2024-03-24] MEDS ORDERED: ASPIRIN 81 MG ECTAB PO SCH (09:00)
--- NOTE | 2024-03-24 15:10 | Discharge Summary ---
Discharge Summary Date of Service March 24, 2024 Principal Dx & Hospital Course #1 = Principal Diagnosis (1) Wound infection: (2) Laceration of knee, right, complicated: (3) Cellulitis: (4) Parkinson disease: (5) Coronary artery disease: (6) Essential hypertension: (7) Environmental allergies: (8) Depression: Plan Ms. Amin is a 78 y/o woman from [place] town with a history of CAD s/p stent x 2, newly diagnosed Parkinson's Disease, pudendal neuralgia, insomnia, CKD (unknown stage/baseline), chronic pain, and depression who presents to the ED with worsening redness and swelling of her right knee and leg since fall with laceration of right knee, now s/p repair, three days ago. Pt has been on oral cephalexin, which she reports she was taking as prescribed, but symptoms are continuing to worsen. Denies systemic symptoms including no fevers, chills, sweats. Patient without leukocytosis. No purulence noted on exam. Notable edema and ecchymosis on RLE, improved since admission. Ortho evaluated this am recommending WBAT, continue current management, encourage gentle ROM #Right knee laceration with superimposed cellulitis CT RLE, no fluid collection c/w abscess formation Continue broad spectrum antibiotics with cefepime/vancomycin as started in the ED - MRSA swabL negative - Duplex RLE to r/o DVT: reviewed, no thrombosis Ortho recommendations reviewed: -D/C lovenox, -ASA BID -CTM on IV abx, transition PO possibly tomorrow PT/OT Wound consult #Parkinson disease: Newly diagnosed about a month ago Continue carbidopa/levodopa Fall precautions #Coronary artery disease: Chronic, stable - no evidence of angina Continue outpatient regimen #Essential hypertension: chronic, stable Continue outpatient regimen #Environmental allergies: Chronic, stable Continue cetirizine, nasal spray #Depression: Chronic, stable Continue outpatient medications DVT ASA 81 BID, ambulate as able dispo 1-2 days 60 minutes spent at bedside with daughter and son; discussion regarding medications, safety at home and encouraging assitive device, as well as OP follow was had. Daughter states she will likely do home rehab or follow up in [place], sutures to be removed in 2 weeks. Admission HPI Per Admitting Provider This is a 78 y/o female from out of town with a history of CAD s/p stent x 2, newly diagnosed Parkinson's Disease, pudendal neuralgia, insomnia, CKD (unknown stage/baseline), chronic pain, and depression who presents to the ED with worsening redness and swelling of her right knee and leg. Pt [place] walking at the park three days ago when she lost her balance and fell with resultant right knee laceration. ED notes reviewed and laceration was noted to be 15 cm long and contaminated. Since it was thought to be high risk for infection, it was thoroughly washed out before repair and pt was started on oral cephalexin. However, within 24 hrs, pt noted that the area started with get red. The redness has been worsening with associated swelling on the LE below the knee. Area is tender to touch but otherwise she denies significant pain. She denies fevers, chills, or sweats. She has not noted any drainage from the area. Denies malaise, nausea, vomiting, loss of appetite. She has been using a cane to help her ambulate since this injury. No history of diabetes. Updated Medication List Medication Instructions Recorded Confirmed Type acetaminophen 650 mg 650 mg PO BID 03/22/24 03/22/24 History tablet,extended release amlodipine 5 mg tablet 5 mg PO QPM 03/22/24 03/22/24 History aripiprazole 10 mg tablet 10 mg PO QAM 03/22/24 03/22/24 History budesonide 32 mcg/actuation nasal 2 spray intranasal DAILY 03/22/24 03/22/24 History spray carbidopa 25 mg-levodopa 100 mg 1 tab PO AC 03/22/24 03/22/24 History tablet cetirizine 10 mg tablet (Zyrtec) 10 mg PO HS 03/22/24 03/22/24 History cholecalciferol (vitamin D3) 125 125 mcg PO QAM 03/22/24 03/22/24 History mcg (5,000 unit) tablet (Vitamin D3) ciclopirox 0.77 % topical 1 applic topical DIRECTED PRN 03/22/24 03/22/24 History suspension NEEDED cyanocobalamin (vitamin B-12) 500 500 mcg PO QAM 03/22/24 03/22/24 History mcg tablet (Vitamin B-12) dextromethorphan IR 45 1 tab PO BID 03/22/24 03/22/24 History mg-bupropion ER 105 mg biphasic tablet (Auvelity) estradiol 0.01% (0.1 mg/gram) 1 appful vaginal 2XWK 03/22/24 03/22/24 History vaginal cream (Estrace) eszopiclone 3 mg tablet 3 mg PO QPM 03/22/24 03/22/24 History fluvoxamine 25 mg tablet 25 mg PO QPM 03/22/24 03/22/24 History furosemide 20 mg tablet 40 mg PO QAM 03/22/24 03/22/24 History gabapentin 600 mg tablet 1,800 mg PO HS 03/22/24 03/22/24 History hydrocodone 10 mg-acetaminophen See Rx Instructions .Route 03/22/24 03/22/24 History 325 mg tablet .COMPLEX PRN Pain hydrocortisone 2.5 % topical cream 1 applic [place] BID PRN Hemorrhoids 03/22/24 03/22/24 History with perineal applicator (Proctosol HC) hydrocortisone acetate 25 mg 25 mg [place] DAILY PRN Hemorrhoids 03/22/24 03/22/24 History rectal suppository (Anucort-HC) lorazepam 1 mg tablet 0.5 mg PO QPM 03/22/24 03/22/24 History meclizine 25 mg tablet 25 mg PO TID PRN Dizziness 03/22/24 03/22/24 History methocarbamol 500 mg tablet 500 mg PO BID 03/22/24 03/22/24 History metoprolol succinate 25 mg 25 mg PO BID 03/22/24 03/22/24 History tablet,extended release 24 hr modafinil 200 mg tablet 400 mg PO QAM 03/22/24 03/22/24 History naloxegol 25 mg tablet (Movantik) 25 mg PO DIRECTED PRN NEEDED 03/22/24 03/22/24 History nitroglycerin 0.4 mg sublingual 0.4 mg sublingual DIRECTED PRN 03/22/24 03/22/24 History tablet Chest Pain pantoprazole 40 mg tablet,delayed 40 mg PO QAM 03/22/24 03/22/24 History release psyllium husk 0.52 gram capsule 0.52 g PO 2XWK PRN Constipation 03/22/24 03/22/24 History rosuvastatin 20 mg tablet 20 mg PO QPM 03/22/24 03/22/24 History sertraline 25 mg tablet 25 mg PO QAM 03/22/24 03/22/24 History aspirin 81 mg tablet,delayed 81 mg PO BID #0 tabs 03/24/24 03/22/24 Rx release doxycycline hyclate 100 mg capsule 100 mg PO BID 7 days #14 caps 03/24/24 Rx Hospital Stay Data Consultations 03/22/24 15:38 ED Decision to Admit Stat 03/22/24 18:39 Consult Orthopedic Surgery Routine Diagnostic Imagining Performed 03/22/24 16:00 US venous doppler LE RT Stat 03/22/24 16:48 CT tib/fib RT wo con Stat Pending Results Patient Have Any Pending Studies at Discharge: No Discharge Instructions Given to Patient (Per Discharging Provider) You were admitted for concern of cellulitis superimposed over right knee laceration. You were evaluated by orthopedics who felt the degree of swelling was likely due to the trauma from the injury. Please continue to rest, elevate, and apply gentle compression Wound care: Stitches are special threads that are sewn through the skin at an injury site to bring a wound together. Care for your stitches and wound as follows: * Keep the area clean and dry for the first 24 to 48 hours after stitches have been placed. * Then, you can start to gently wash around the site 1 to 2 times daily. Wash with cool water and soap. Clean as close to the stitches as you can. Do not wash or rub the stitches directly. * Dab the site dry with a clean towel. Do not rub the area. Avoid using the towel directly on the stitches. * If there was a bandage over the stitches, replace it with a new clean bandage and any treatment as directed by your provider. * Your provider should also tell you when you need to have a wound checked and the stitches removed. If not, contact your provider for an appointment. Contact your provider right away if: * There is any redness, pain, or yellow pus around the injury. This could mean there is an infection. * There is bleeding at the injury site that does not stop after 10 minutes of direct pressure. * You have new numbness or tingling around the wound area or beyond it. * You have a fever of 100F (37.7C) or higher. * There is pain at the site that does not go away, even after taking pain medicine. * The wound has split open. * Your stitches or david have come out too soon Please antibiotics: doxycycline 100mg two times a day, your next dose is this evening. Suture to be removed by April 03 2024 Continue Aspirin 81 mg two times a day for 2 weeks.
--- NOTE | 2024-03-24 15:15 | Discharge Summary ---
Discharge Summary Date of Service March 24, 2024 Principal Dx & Hospital Course #1 = Principal Diagnosis (1) Wound infection: (2) Laceration of knee, right, complicated: (3) Cellulitis: (4) Parkinson disease: (5) Coronary artery disease: (6) Essential hypertension: (7) Environmental allergies: (8) Depression: Plan Ms. Amin is a 78 y/o [place] with a history of CAD s/p stent x 2, newly diagnosed Parkinson's Disease, pudendal neuralgia, insomnia, CKD (unknown stage/baseline), chronic pain, and depression who presents to the ED with worsening redness and swelling of her right knee and leg since fall with laceration of right knee, now s/p repair, three days ago. Pt has been on oral cephalexin, which she reports she was taking as prescribed, but symptoms are continuing to worsen. Denies systemic symptoms including no fevers, chills, sweats. Patient without leukocytosis. No purulence noted on exam. Notable edema and ecchymosis on RLE, improved since admission. Ortho evaluated this am recommending WBAT, continue current management, encourage gentle ROM No growth on wound cultures. Discussed wound care with patient and follow up with PCP when returning to [place] #Right knee laceration with superimposed cellulitis CT RLE, no fluid collection c/w abscess formation Continue broad spectrum antibiotics with cefepime/vancomycin as started in the ED - MRSA swabL negative - Duplex RLE to r/o DVT: reviewed, no thrombosis Ortho recommendations reviewed: -D/C lovenox, -ASA BID -CTM on IV abx, transition PO doxycycline 100mg bid PT/OT: return home, performed well Wound consult: gentle cleaning of wound removed sutures by 04/03 Continue ASA 81mg BID for 14 daysfor DVT ppx #Parkinson disease: Newly diagnosed about a month ago Continue carbidopa/levodopa #Coronary artery disease: Chronic, stable - no evidence of angina Continue outpatient regimen #Essential hypertension: chronic, stable Continue outpatient regimen #Environmental allergies: Chronic, stable Continue cetirizine, nasal spray #Depression: Chronic, stable Continue outpatient medications Notes For Next Care Provider Medication Changes From Visit Doxycycline 100mg bid x 7 days ASA 81mg BID for 14 days Admission HPI Per Admitting Provider This is a 78 y/o female from out of town with a history of CAD s/p stent x 2, newly diagnosed Parkinson's Disease, pudendal neuralgia, insomnia, CKD (unknown stage/baseline), chronic pain, and depression who presents to the ED with worsening redness and swelling of her right knee and leg. Pt was walking at the park three days ago when she lost her balance and fell with resultant right knee laceration. ED notes reviewed and laceration was noted to be 15 cm long and contaminated. Since it was thought to be high risk for infection, it was thoroughly washed out before repair and pt was started on oral cephalexin. However, within 24 hrs, pt noted that the area started with get red. The redness has been worsening with associated swelling on the LE below the knee. Area is tender to touch but otherwise she denies significant pain. She denies fevers, chills, or sweats. She has not noted any drainage from the area. Denies malaise, nausea, vomiting, loss of appetite. She has been using a cane to help her amb ulate since this injury. No history of diabetes. Admission Exam Per Admitting Provider GENERAL APPEARANCE: AxOx4, generally well-appearing F, no acute distress. HEENT: NC, AT. MMM. EOMI, clear conjunctiva, oropharynx clear. NECK: Supple without lymphadenopathy. No stiffness or restricted ROM. HEART: Normal rate and regular rhythm, normal S1/S1, no m/r/g LUNGS: CTAB, moving air well. No crackles or wheezes are heard. ABDOMEN: Soft, nontender, nondistended with good bowel sounds heard. BACK: No CVAT, no obvious deformity. EXTREMITIES: LLE without edema; RLE with large horizontal laceration sutured, no signs of drainage or fluid/purulent collections, large degree of edema on anterior velez with ecchymosis and erythema extending to ankle NEUROLOGICAL: Grossly nonfocal. Alert and oriented, moving all 4 extremities. CN not formally tested but appear grossly intact. Observed to ambulate with normal gait. Discharge Exam Constitutional WD/WN, vitals as above Respiratory normal respiratory effort, lungs clear to auscultation Cardiovascular RRR, no murmur, no edema Gastrointestinal (Abdomen) normal bowel sounds, soft, nontender, no hepatosplenomegaly Musculoskeletal no cyanosis or clubbing, extremities motor strength 5/5 Skin significant reduction in swelling of RLE, large ecchymosis noted on anterior LE, nontender Updated Medication List Medication Instructions Recorded Confirmed Type acetaminophen 650 mg 650 mg PO BID 03/22/24 03/22/24 History tablet,extended release amlodipine 5 mg tablet 5 mg PO QPM 03/22/24 03/22/24 History aripiprazole 10 mg tablet 10 mg PO QAM 03/22/24 03/22/24 History budesonide 32 mcg/actuation nasal 2 spray intranasal DAILY 03/22/24 03/22/24 History spray carbidopa 25 mg-levodopa 100 mg 1 tab PO AC 03/22/24 03/22/24 History tablet cetirizine 10 mg tablet (Zyrtec) 10 mg PO HS 03/22/24 03/22/24 History cholecalciferol (vitamin D3) 125 125 mcg PO QAM 03/22/24 03/22/24 History mcg (5,000 unit) tablet (Vitamin D3) ciclopirox 0.77 % topical 1 applic topical DIRECTED PRN 03/22/24 03/22/24 History suspension NEEDED cyanocobalamin (vitamin B-12) 500 500 mcg PO QAM 03/22/24 03/22/24 History mcg tablet (Vitamin B-12) dextromethorphan IR 45 1 tab PO BID 03/22/24 03/22/24 History mg-bupropion ER 105 mg biphasic tablet (Auvelity) estradiol 0.01% (0.1 mg/gram) 1 appful vaginal 2XWK 03/22/24 03/22/24 History vaginal cream (Estrace) eszopiclone 3 mg tablet 3 mg PO QPM 03/22/24 03/22/24 History fluvoxamine 25 mg tablet 25 mg PO QPM 03/22/24 03/22/24 History furosemide 20 mg tablet 40 mg PO QAM 03/22/24 03/22/24 History gabapentin 600 mg tablet 1,800 mg PO HS 03/22/24 03/22/24 History hydrocodone 10 mg-acetaminophen See Rx Instructions .Route 03/22/24 03/22/24 History 325 mg tablet .COMPLEX PRN Pain hydrocortisone 2.5 % topical cream 1 applic KS BID PRN Hemorrhoids 03/22/24 03/22/24 History with perineal applicator (Proctosol HC) hydrocortisone acetate 25 mg 25 mg KS DAILY PRN Hemorrhoids 03/22/24 03/22/24 History rectal suppository (Anucort-HC) lorazepam 1 mg tablet 0.5 mg PO QPM 03/22/24 03/22/24 History meclizine 25 mg tablet 25 mg PO TID PRN Dizziness 03/22/24 03/22/24 History methocarbamol 500 mg tablet 500 mg PO BID 03/22/24 03/22/24 History metoprolol succinate 25 mg 25 mg PO BID 03/22/24 03/22/24 History tablet,extended release 24 hr modafinil 200 mg tablet 400 mg PO QAM 03/22/24 03/22/24 History naloxegol 25 mg tablet (Movantik) 25 mg PO DIRECTED PRN NEEDED 03/22/24 03/22/24 History nitroglycerin 0.4 mg sublingual 0.4 mg sublingual DIRECTED PRN 03/22/24 03/22/24 History tablet Chest Pain pantoprazole 40 mg tablet,delayed 40 mg PO QAM 03/22/24 03/22/24 History release psyllium husk 0.52 gram capsule 0.52 g PO 2XWK PRN Constipation 03/22/24 03/22/24 History rosuvastatin 20 mg tablet 20 mg PO QPM 03/22/24 03/22/24 History sertraline 25 mg tablet 25 mg PO QAM 03/22/24 03/22/24 History aspirin 81 mg tablet,delayed 81 mg PO BID #0 tabs 03/24/24 03/22/24 Rx release doxycycline hyclate 100 mg capsule 100 mg PO BID 7 days #14 caps 03/24/24 Rx Hospital Stay Data Consultations 03/22/24 15:38 ED Decision to Admit Stat 03/22/24 18:39 Consult Orthopedic Surgery Routine Diagnostic Imagining Performed 03/22/24 16:00 US venous doppler LE RT Stat 03/22/24 16:48 CT tib/fib RT wo con Stat Pending Results Patient Have Any Pending Studies at Discharge: No Discharge Instructions Given to Patient (Per Discharging Provider) You were admitted for concern of cellulitis superimposed over right knee laceration. You were evaluated by orthopedics who felt the degree of swelling was likely due to the trauma from the injury. Please continue to rest, elevate, and apply gentle compression Wound care: Stitches are special threads that are sewn through the skin at an injury site to bring a wound together. Care for your stitches and wound as follows: * Keep the area clean and dry for the first 24 to 48 hours after stitches have been placed. * Then, you can start to gently wash around the site 1 to 2 times daily. Wash with cool water and soap. Clean as close to the stitches as you can. Do not wash or rub the stitches directly. * Dab the site dry with a clean towel. Do not rub the area. Avoid using the towel directly on the stitches. * If there was a bandage over the stitches, replace it with a new clean bandage and any treatment as directed by your provider. * Your provider should also tell you when you need to have a wound checked and the stitches removed. If not, contact your provider for an appointment. Contact your provider right away if: * There is any redness, pain, or yellow pus around the injury. This could mean there is an infection. * There is bleeding at the injury site that does not stop after 10 minutes of direct pressure. * You have new numbness or tingling around the wound area or beyond it. * You have a fever of 100F (37.7C) or higher. * There is pain at the site that does not go away, even after taking pain medicine. * The wound has split open. * Your stitches or david have come out too soon Please antibiotics: doxycycline 100mg two times a day, your next dose is this evening. Suture to be removed by April 03 2024 Continue Aspirin 81 mg two times a day for 2 weeks. Total Time Total Time Spent Total Time Spent (In Minutes): 45
[2024-03-25] MEDS ORDERED: VANCOMYCIN HCL 750 MG in SODIUM CHLORIDE 0.9% 250 ML IV SCH (08:00)
== END 2024-03-24 16:14 | disposition home or self-care (01) | DRG 603 ==
LOC: ED 12:47 → 3W 16:13